=== PATIENT | female | born 1970 | race Caucasian/White ===

== ENCOUNTER 2024-11-15 07:04 | Day surgery (SDC) | payer BC ==
[~2024-11-15 07:04] MED LIST: Sodium Chloride 0.9% 10 ML Syringe FLUSH PRN
[2024-11-15] MEDS ORDERED: Propofol 200 MG/20 ML SDV IV ONE (07:05)
[2024-11-15] MEDS: Lactated Ringers 1,000 ML IV SCH (07:57)
[2024-11-15 09:29] VITALS: BP 113/72; PULSE 66
== END 2024-11-15 09:23 | disposition home or self-care (01) ==
LOC: FB.SDS 07:04
PROVIDERS: ATTEND Surgery
DX: Z12.11 Encounter for screening for malignant neoplasm of colon (principal); D12.6 Benign neoplasm of colon, unspecified; R19.5 Other fecal abnormalities; E66.9 Obesity, unspecified; Z88.2 Allergy status to sulfonamides; Z88.8 Allergy status to other drugs, medicaments and biological substances; Z68.34 Body mass index [BMI] 34.0-34.9, adult; Z87.891 Personal history of nicotine dependence; Z79.899 Other long term (current) drug therapy
CPT/HCPCS: 45384; 88305; A9270; J2003; J2704; J7120; 00811